=== PATIENT | female | born 2000 | race Caucasian/White ===

== ENCOUNTER 2020-11-19 15:53 | Emergency (ER) | payer MEDICAID, OTHER ==
[~2020-11-19] VITALS: Ht 175.3 cm; Wt 73.6 kg
[2020-11-19 15:57] VITALS: BP 131/86
--- NOTE | 2020-11-19 16:40 | NUR ---
LAUNDRY SUPERVISOR: PT AMBULATORY TO ROOM WITH [facility]
--- NOTE | 2020-11-19 16:46 | NUR ---
PATIENT WALKED BACK FROM TRIAGE WITH CHIEF C/O FEVER, SORE THROAT, PATE, COUGH, AND NAUSEA X2 DAYS. PATIENT IS REQUESTING A COVID TEST.
--- NOTE | 2020-11-19 17:36 | NUR ---
Patient given discharge instructions and they have confirmed that they understand the instructions, patient understands education about quarantining. Patient stable and ambulatory with steady gait from ED to private vehicle.
== END 2020-11-19 17:37 | disposition home or self-care (01) ==
LOC: ED 16:30
DX: J06.9 Acute upper respiratory infection, unspecified (principal); Z20.822 Contact with and (suspected) exposure to COVID-19; J02.9 Acute pharyngitis, unspecified; R50.9 Fever, unspecified; R05 Cough; M79.10 Myalgia, unspecified site; R09.81 Nasal congestion
CPT/HCPCS: 87635; 99283